=== PATIENT | male | born 1950 | race Caucasian/White ===

== ENCOUNTER 2020-12-16 21:31 | Emergency (ER) | payer MEDICAID, SELFPAY ==
--- NOTE | ~2020-12-16 | CT_ITS ---
EXAMINATION: CT brain wo con INDICATION: Altered mental status COMPARISON: None TECHNIQUE: Standard unenhanced head CT. The dose-length product (DLP) was 605.33 mGy-cm. The mA was a djusted according to patient size. Iterative reconstruction technique was employed. FINDINGS: Motion artifact slightly limits the examination. There is no acute intraparenchymal hemorrh age. No evidence of mass lesion. No evidence of acute infarction. There is mild periventricular and s ubcortical hypodensity probably related to small vessel ischemic disease. There is moderate prominenc e of the sulci and ventricles related to cerebral atrophy. Intracranial calcified cerebral atheroscle rosis is noted. There are no extra-axial collections. There is no mass effect or midline shift. The o rbits and soft tissues are unremarkable. The visualized sinuses and mastoid air cells are well aerat ed. IMPRESSION: 1. No acute intracranial abnormality, sensitivity limited by motion artifact. 2. Age related findings. Reviewed, dictated and finalized at location A. [facility]
[2020-12-16 21:38] VITALS: BP 115/78; PULSE 103; RESP 20; TEMP 37.3; O2SAT 99
--- NOTE | 2020-12-16 21:46 | ED.GENADULT ---
HPI - General Adult General Chief complaint: Unspecified Stated complaint: escaped from [facility] Time Seen by Provider: 12/16/20 21:46 History of Present Illness HPI narrative: 70 yo male brought in by PD for dementia. He is a [facility] who went missing for about 4 hours and was found wandering. He is apparently oriented x1 at baseline. He is not able to provide any history. History limited by dementia Related Data Allergies Allergy/AdvReac Type Severity Reaction Status Date / Time No Known Allergies Allergy Verified 12/16/20 21:34 Review of Systems Review of Systems: ROS unobtainable: Yes unobtainable due to mental status [facility] Past Medical History Medical History (Updated 12/17/20 @ 00:38 by Franco Johnston MD) Dementia Social History Social History Gender identity (if verbalized by the patient): Male Comments Additional history unobtainable Exam Const: General: no acute distress and alert Other: He is disheveled and covered in dirt. It appears that he may have fallen multiple times. HENMT: Head: normal to inspection Mouth: Yes dry mucous membranes Eyes: Pupils: Equal, round and reactive pupils present Chest: Chest palpation & inspection: no tenderness Resp: Effort & Inspection: normal respiratory effort Auscultation: clear to auscultation bilaterally, no rales, no rhonchi and no wheezes Cardio: Jugular venous distension: no JVD Rate: tachycardic Rhythm: regular rhythm Heart sounds: no murmurs GI: Inspection: non-distended GI Palp: Yes Soft to palpation and No Tenderness to palpation present (GI) Skin: General skin exam: normal color Neuro: General: oriented to person, gait normal and moves all extremities Extrem: General: no edema Psych: Appearance: disheveled Course Vital Signs Vital signs: Vital Signs Temperature 37.3 C 12/16/20 21:38 Pulse Rate 103 H 12/16/20 21:38 Respiratory Rate 20 12/16/20 21:38 Blood Pressure 115/78 12/16/20 21:38 Pulse Oximetry 99 12/16/20 21:38 Temperature 37.3 C 12/16/20 21:38 Pulse Rate 106 H 12/17/20 00:30 Respiratory Rate 16 12/17/20 00:30 Blood Pressure 134/74 12/17/20 00:30 Pulse Oximetry 96 12/17/20 00:30 Medical Decision Making MDM Narrative Medical decision making narrative: Labs and exam suggest dehydration Medical Records Medical records reviewed: Yes I reviewed the patient's medical records. Vital Signs Vital Signs: Vital Signs Temperature 37.3 C 12/16/20 21:38 Pulse Rate 103 H 12/16/20 21:38 Respiratory Rate 20 12/16/20 21:38 Blood Pressure 115/78 12/16/20 21:38 Pulse Oximetry 99 12/16/20 21:38 Temperature 37.3 C 12/16/20 21:38 Pulse Rate 106 H 12/17/20 00:30 Respiratory Rate 16 12/17/20 00:30 Blood Pressure 134/74 12/17/20 00:30 Pulse Oximetry 96 12/17/20 00:30 Lab Data Result diagrams: 12/16/20 23:12 12/16/20 23:12 Labs: Lab Results 12/16/20 12/16/20 12/16/20 Range/Units 23:12 23:12 23:12 WBC 10.4 H (4.5-10.0) K/mm3 RBC 4.96 (4.6-6.20) M/mm3 Hgb 14.1 (14.0-18.0) g/dL Hct 42.4 (42.0-52.0) % MCV 85.5 (80-100) fl MCH 28.4 (26-34) pg MCHC 33.3 (32-36) g/dl RDW 12.6 (11.5-14.5) % Plt Count 227 (150-375) k/mm3 MPV 9.4 (7.4-10.4) fl Immature Gran % (Auto) 1.0 H (0-0.5) % Neut % (Auto) 83.3 H (45.5-73.1) % Lymph % (Auto) 8.5 L (18.3-44.2) % [place] % (Auto) 6.8 (2.6-8.5) % Eos % (Auto) 0.1 (0-4.4) % Baso % (Auto) 0.3 (0.2-1.2) % Lymph # (Auto) 0.89 L (0.9-3.2) K/mm3 [place] # (Auto) 0.7 H (0.1-0.6) K/mm3 Eos # (Auto) 0.0 (0-0.3) K/mm3 Baso # (Auto) 0.0 (0.0-0.1) K/mm3 Abs Immat Gran (auto) 0.10 H (0.00-0.031) K/mm3 Absolute Neuts (auto) 8.7 H (1.3-6.7) K/mm3 Absolute Nucleated RBC 0.0 (0.0-0.012) K/mm3 Nucleated RBC % 0.0 (0.0-0.2) % PT 12.7 (11.1-14.7) Seconds INR 0.9 AP
--- NOTE | 2020-12-16 21:52 | PC.NURSE ---
patient eloped from [facility] about 4 hours ago. patient states he was trying to go home. brought to er by [place] police. patient has no complaints. no obvious injury
--- NOTE | 2020-12-16 22:11 | PC.NURSE ---
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 status.
--- NOTE | 2020-12-16 23:15 | PC.NURSE ---
Received report regarding patient---apparently he has been getting off stretcher and getting himself redressed several times--at this time patient is in blue paper scrubs on tretcher. Assumed care of patient at this time
[2020-12-16 23:18] LABS: Basophils Percent Auto 0.3 % (0.2-1.2); Eosinophils Percent Auto 0.1 % (0-4.4); Hematocrit 42.4 % (42.0-52.0); Hemoglobin 14.1 g/dL (14.0-18.0); Lymphocytes Absolute Auto 0.89 K/mm3 (0.9-3.2); Lymphocytes Percent Auto 8.5 % (18.3-44.2); Mean Corpuscular HGB Conc 33.3 g/dl (32-36); Mean Corpuscular Hemoglobin 28.4 pg (26-34); Mean Corpuscular Volume 85.5 fl (80-100); Mean Platelet Volume 9.4 fl (7.4-10.4); Monocytes Absolute Auto 0.7 K/mm3 (0.1-0.6); Monocytes Percent Auto 6.8 % (2.6-8.5); Neutrophils Absolute Auto 8.7 K/mm3 (1.3-6.7); Neutrophils Percent Auto 83.3 % (45.5-73.1); Platelet Count Result 227 k/mm3 (150-375); Red Blood Count 4.96 M/mm3 (4.6-6.20); Red Cell Distribution Width 12.6 % (11.5-14.5); White Blood Count 10.4 K/mm3 (4.5-10.0)
[2020-12-16 23:30] LABS: INR 0.9; Prothrombin Time 12.7 Seconds (11.1-14.7)
[2020-12-16 23:31] LABS: Partial Thromboplastin Time 25.2 SECONDS (22.3-36.8)
[2020-12-16 23:35] LABS: Alanine Aminotransferase 31 U/L (4-50); Alkaline Phosphatase 66 U/L (38-126); Anion Gap 7 mmol/L (8-16); Aspartate Amino Transferase 48 U/L (17-59); Bilirubin,Total 0.4 mg/dL (0.2-1.3); Blood Urea Nitrogen 16 mg/dL (9-20); Calcium 8.9 mg/dL (8.4-10.2); Carbon Dioxide 28 mmol/L (22-30); Chloride 104 mmol/L (98-107); Estimated Glomerular Filt Rate > 60; Glucose 99 mg/dL (75-110); Potassium 4.1 mmol/L (3.4-5.0); Sodium 139 mmol/L (137-145)
[2020-12-17 00:12] LABS: Add Urine Microscopic? YES; Appearance Urine Clear (Clear); Bilirubin Urine Negative (Negative); Blood Urine 1+ (Negative); Color Urine Yellow (Yellow); Glucose Urine UA Negative (Negative); Ketones Urine 2+ mg/dL (Negative); Leukocyte Esterase Ur Negative LEU/UL (Negative); Mucus Urine Rare /lpf; Nitrate Urine Negative (Negative); Protein Urine Negative (Negative); Specific Grav Ur 1.023 (1.001-1.035); Urobilinogen Urine Negative mg/dL (<2.0); WBC Urine 0-3 /hpf
--- NOTE | 2020-12-17 00:29 | PC.NURSE ---
Patient found sitting in chair at bedside -has taken off the blue scrubs and is redressing himself. Patient is calm and cooperative
[2020-12-17 00:30] VITALS: BP 134/74; PULSE 106; RESP 16; O2SAT 96
[2020-12-17] MEDS: SODIUM CHLORIDE 0.9% IV 1,000 ML 999 ML IV CONT (01:01)
[2020-12-17 01:30] VITALS: BP 124/76; PULSE 90; RESP 16; O2SAT 99
--- NOTE | 2020-12-17 01:46 | PC.NURSE ---
0120-patient pulled out IV and was trying to walk out of room. Linens changed after bleeding controlled-Dr Johnston aware- dont put IV back in . Patient back on stretcher
== END 2020-12-17 02:30 ==
PROVIDERS: Emergency Provider Emergency Medicine
DX: F03.90 Unspecified dementia, unspecified severity, without behavioral disturbance, psychotic disturbance, mood disturbance, and anxiety (principal)
CPT/HCPCS: 36415; 70450; 80053; 81001; 85025; 85610; 85730; 96360; 99284; J7030

== ENCOUNTER 2022-10-17 21:09 | Emergency (ER) | payer MEDICAID, SELFPAY ==
[2022-10-17] VITALS (7 sets, daily range): BP systolic 114–143; BP diastolic 64–90; PULSE 82–108; RESP 18–34; TEMP 37.7–37.9; O2SAT 91–96
--- NOTE | ~2022-10-17 | XR_ITS ---
EXAMINATION: XR chest 1V portable DATE: 10/17/2022 21:31 INDICATION: Shortness of breath, cough and wheezing TECHNIQUE: frontal view of the chest was obtained. COMPARISON: None FINDINGS: Mild elevation of the left hemidiaphragm. Mild perihilar bronchial wall thickening. No focal airspace opacities, pleural effusion or pneumothorax. The cardiomediastinal silhouette is normal. IMPRESSION: 1. Bilateral mild perihilar bronchial wall thickening without without focal airspace opacities. Diffe rential would include bronchitis, reactive airway disease/asthma or less likely mild pulmonary edema. Reviewed, dictated and finalized at location A. [employer] IMPRESSION: 1. Bilateral mild perihilar bronchial wall thickening without without focal air space opacities. Differential would include bronchitis, reactive airway disease /asthma or less likely mild pulmonary edema.
--- NOTE | 2022-10-17 21:18 | ECG_ITS ---
Measurements Intervals [place] Rate: 100 P: 44 CA: 158 QRS: 33 QRSD: 85 T: 45 QT: 320 QTc: 413 Interpretive Statements SINUS TACHYCARDIA NONSPECIFIC T-WAVE ABNORMALITY- ANTEROLATERAL LEADS BASELINE ARTIFACT- I, AVR, AVL, AVF, V1-V6 BORDERLINE ECG NO PREVIOUS ECG AVAILABLE FOR COMPARISON Electronically Signed On 10-18-2022 7:01:40 [employer] by David Diaz D.O.
[2022-10-17] MEDS: ALBUTEROL SULFATE NEB 2.5 MG/3 ML INH 5 MG INHALATION (21:34)
[2022-10-17] MEDS: IPRATROPIUM BR 0.02% INH SOLN 0.5 MG/2.5 ML VIAL INHALATION (21:34)
[2022-10-17 21:35] LABS: Basophils Percent Auto 0.3 % (0.2-1.2); Eosinophils Percent Auto 0.2 % (0-4.4); Hematocrit 43.6 % (42.0-52.0); Hemoglobin 14.4 g/dL (14.0-18.0); Immature Granulocyte Absolute 0.06 K/mm3 (0.00-0.031); Immature Platelet Fraction Pct 2.7 % (0.9-11.2); Lymphocytes Absolute Auto 1.43 K/mm3 (0.9-3.2); Lymphocytes Percent Auto 24.5 % (18.3-44.2); Mean Corpuscular Hemoglobin 29.8 pg (26-34); Mean Corpuscular Volume 90.1 fl (80-100); Mean Platelet Volume 9.7 fl (7.4-10.4); Monocytes Absolute Auto 0.7 K/mm3 (0.1-0.6); Monocytes Percent Auto 12.3 % (2.6-8.5); Neutrophils Absolute Auto 3.6 K/mm3 (1.3-6.7); Neutrophils Percent Auto 61.7 % (45.5-73.1); Platelet Count Result 131 k/mm3 (150-375); Red Blood Count 4.84 M/mm3 (4.6-6.20); Red Cell Distribution Width 13.4 % (11.5-14.5); White Blood Count 5.8 K/mm3 (4.5-10.0)
--- NOTE | 2022-10-17 21:40 | ED.GENADULT ---
HPI - General Adult General Chief complaint: Shortness of Breath/Dyspnea Stated complaint: shortness of breath Time Seen by Provider: 10/17/22 21:12 History of Present Illness HPI narrative: Patient 72-year-old gentleman who presents the emergency department with a chief complaint of cough shortness of breath and wheezing. Per the nursing facility patient has had cough for the last couple of days has been wheezing and having obvious auditory wheezing in the room. I also noticed that he has had a low-grade fever and has been weaker than normal. The patient reports that symptoms are not improved by anything. Related Data Home Medications Medication Instructions Recorded Confirmed aripiprazole 20 mg tablet mg 10/18/22 aripiprazole 300 mg intramuscular mg IM 10/18/22 suspension,extended release (Abilify Maintena) divalproex 500 mg tablet,delayed mg PO 10/18/22 release donepezil 5 mg tablet mg 10/18/22 mirtazapine 30 mg tablet mg 10/18/22 olanzapine 20 mg tablet mg 10/18/22 omega-3 fatty acids-vitamin E cap 10/18/22 10/18/22 1,000 mg capsule rosuvastatin 5 mg tablet mg 10/18/22 trazodone 50 mg tablet mg 10/18/22 Allergies Allergy/AdvReac Type Severity Reaction Status Date / Time No Known Allergies Allergy Verified 10/18/22 00:08 Review of Systems Review of Systems: A 10 system review of systems was completed on the patient and is negative except for what is stated in the HPI. Nursing and ancillary documentation was reviewed. PMFSH Past Medical History Medical History Dementia Social History Social History Gender identity (if verbalized by the patient): Male Exam Narrative: GENERAL: Well-appearing, well-nourished, and in no acute distress. HEAD: Normocephalic, atraumatic. EYES: PERRLA and EOMI. ENT: Nares clear, no rhinorrhea or epistaxis. Mucous membranes moist. NECK: Supple. CHEST: Diffuse wheezing bilaterally. No respiratory distress. HEART: Regular rate and rhythm. No murmur heard. Normal peripheral pulses. ABDOMEN: Soft, nontender, nondistended, normal active bowel sounds. EXTREMITIES: Normal range of motion. No edema. SKIN: Warm, dry, no rash. NEURO: No focal deficits. Alert and oriented x3. PSYCH: Normal mood and affect. Course Course Emergency Course: Patient is feeling much better after receiving Tylenol and a breathing treatment and steroids. Chest x-ray showed some slight interstitial infiltrates. Given the fever the patient will be treated empirically for bacterial pneumonia. Patient's laboratory studies were otherwise within normal limits. Patient was able to ambulate without difficulty Vital Signs Vital signs: Vital Signs Temperature 37.9 C H 10/17/22 21:08 Pulse Rate 102 H 10/17/22 21:08 Respiratory Rate 34 H 10/17/22 21:08 Blood Pressure 134/90 10/17/22 21:08 Pulse Oximetry 96 10/17/22 21:08 Oxygen Delivery Room Air 10/17/22 21:08 Temperature 37.7 C H 10/17/22 22:25 Pulse Rate 83 10/18/22 00:02 Respiratory Rate 23 H 10/18/22 00:02 Blood Pressure 111/61 10/18/22 00:02 Pulse Oximetry 93 10/18/22 00:02 Oxygen Delivery Room Air 10/17/22 21:18 Medical Decision Making Vital Signs Vital Signs: Vital Signs Temperature 37.9 C H 10/17/22 21:08 Pulse Rate 102 H 10/17/22 21:08 Respiratory Rate 34 H 10/17/22 21:08 Blood Pressure 134/90 10/17/22 21:08 Pulse Oximetry 96 10/17/22 21:08 Oxygen Delivery Room Air 10/17/22 21:08 Temperature 37.7 C H 10/17/22 22:25 Pulse Rate 83 10/18/22 00:02 Respiratory Rate 23 H 10/18/22 00:02 Blood Pressure 111/61 10/18/22 00:02 Pulse Oximetry 93 10/18/22 00:02 Oxygen Delivery Room Air 10/17/22 21:18 Lab Data Result diagrams: 10/17/22 21:23 10/17/22 21:23 Labs: Lab Results 10/17/22
[2022-10-17 21:42] LABS: Lactic Acid Reflex 2.1 mmol/L (0.7-2.0)
[2022-10-17 21:46] LABS: INR 1.1; Prothrombin Time 13.3 Seconds (11.1-14.7)
[2022-10-17] MEDS: DEXAMETHASONE SOD PHOS INJ 4 MG/ML VIAL 6 MG IV PUSH (21:46)
[2022-10-17] MEDS: SODIUM CHLORIDE 0.9% IV 1,000 ML 500 ML IV CONT (21:46)
[2022-10-17 21:47] LABS: Partial Thromboplastin Time 30.3 SECONDS (22.3-36.8)
[2022-10-17 21:51] LABS: Alanine Aminotransferase 29 U/L (6-50); Alkaline Phosphatase 49 U/L (38-126); Anion Gap 8 mmol/L (8-16); Aspartate Amino Transferase 73 U/L (17-59); Bilirubin,Total 0.4 mg/dL (0.2-1.3); Blood Urea Nitrogen 20 mg/dL (9-20); Calcium 8.9 mg/dL (8.4-10.2); Carbon Dioxide 28 mmol/L (22-30); Chloride 102 mmol/L (98-107); Estimated CRCL calculation 57 ml/min; Estimated Glomerular Filt Rate > 60; Glucose 117 mg/dL (65-110); Magnesium 1.9 mg/dL (1.6-2.3); Potassium 4.3 mmol/L (3.4-5.0); Sodium 138 mmol/L (137-145)
--- NOTE | 2022-10-17 21:51 | PC.NURSE ---
Janet, patients daughter calls to leave her number of [phone].
[2022-10-17 22:01] LABS: NT Pro B Type Natriuretic Pept 89 pg/mL (5-100); Troponin I 0.013 ng/mL (0.000-0.034)
[2022-10-17 22:07] LABS: Procalcitonin 0.2 ng/mL
[2022-10-17 22:10] LABS: Influenza A QL RT-PCR Negative (Negative); Influenza B QL RT-PCR Negative (Negative); SARS-CoV-2 RNA PCR Negative
--- NOTE | 2022-10-17 22:58 | PC.NURSE ---
pt unable to provide urine sample at this time. Pt denies straight cath.
--- NOTE | 2022-10-17 23:39 | PC.NURSE ---
pt ambulated with this RN using a walker. Pt was able to walk without my direct assistance. pt states they normally use a walker to ambulate.
[2022-10-17 23:54] LABS: Appearance Urine Clear (Clear); Bilirubin Urine 1+ (Negative); Blood Urine 2+ (Negative); Color Urine Yellow (Yellow); Glucose Urine UA Negative (Negative); Ketones Urine 1+ mg/dL (Negative); Leukocyte Esterase Ur Negative LEU/UL (Negative); Nitrate Urine Negative (Negative); Protein Urine Trace mg/dL (Negative); Urobilinogen Urine 0.2 mg/dL (<2.0); pH Urine 5.5 (5.0-9.0)
[2022-10-17 23:57] LABS: Add Urine Microscopic? YES; Mucus Urine Rare /lpf; RBC Urine 21-50 /hpf (0-2); Squamous Epithelial Cell Urine Rare /hpf (Few); WBC Urine 0-3 /hpf
[2022-10-18 00:02] VITALS: BP 111/61; PULSE 83; RESP 23; O2SAT 93
--- NOTE | 2022-10-18 00:21 | PC.NURSE ---
[facility] faxed over pt's medications. medications entered into chart by this RN
[2022-10-18] MEDS: DOXYCYCLINE HYCLATE 100 MG TABLET PO (00:26)
[2022-10-18 00:30] LABS: Reflex Lactic Acid Yes or No Add Lactic
--- NOTE | 2022-10-18 00:34 | PC.NURSE ---
called [facility] for transport. ETA [phone]
[2022-10-18 00:40] LABS: Troponin I < 0.012 ng/mL (0.000-0.034)
[2022-10-18 00:53] LABS: Lactic Acid 1.1 mmol/L (0.7-2.0)
[2022-10-18 01:00] VITALS: BP 113/65; PULSE 70; RESP 20
[2022-10-18 01:31] VITALS: BP 140/71; PULSE 81; RESP 23; O2SAT 94
--- NOTE | 2022-10-18 02:00 | PC.NURSE ---
[facility] called and updated ETA to [phone]. Called [facility] to request transport. [facility]available. [facility] unavailable tonight.
[2022-10-18 02:01] VITALS: BP 110/61; PULSE 73; RESP 25; O2SAT 94
[2022-10-18 02:30] VITALS: BP 114/64; PULSE 65; RESP 26; O2SAT 95
--- NOTE | 2022-10-18 03:41 | PC.NURSE ---
[facility] here
== END 2022-10-18 00:29 | disposition home or self-care (01) ==
PROVIDERS: Emergency Provider Emergency Medicine; PCP Family Medicine
DX: J18.9 Pneumonia, unspecified organism (principal); Z20.822 Contact with and (suspected) exposure to COVID-19; F03.90 Unspecified dementia, unspecified severity, without behavioral disturbance, psychotic disturbance, mood disturbance, and anxiety
CPT/HCPCS: 36415; 51701; 71045; 80053; 81001; 83605; 83735; 83880; 84145; 84484; 85025; 85055; 85610; 85730; 87040; 87502; 93005; 94640; 96361; 96365; 96375; 99284; A9270; J0131; J1100; J7030; U0003; U0005

== ENCOUNTER 2023-09-23 13:28 | Inpatient (IN) | payer MEDICARE, MEDICAID, SELFPAY ==
[2023-09-23] VITALS (9 sets, daily range): BP systolic 101–139; BP diastolic 53–74; PULSE 77–93; RESP 15–24; TEMP 36.4–37.1; O2SAT 93–97
--- NOTE | ~2023-09-23 | XR_ITS ---
EXAMINATION: XR tibia fibula RT 2V INDICATION: Right lower limb infection TECHNIQUE: Two views of the right lower lobe are obtained. COMPARISON: None available FINDINGS: Bone alignment is normal. There is no fracture. There is mild soft tissue swelling of the l ower limb. IMPRESSION: 1. Soft tissue swelling without acute osseous abnormality. Reviewed, dictated and finalized at location F.
--- NOTE | ~2023-09-23 | CT_ITS ---
EXAMINATION: C T brain wo con DATE: 10/01/2023 13:33 INDICATION: Blurred vision. TECHNIQUE: Computed tomography (CT) of the head was performed without intravenous contrast. The mA wa s adjusted according to patient size. Iterative reconstruction technique was employed. The dose-lengt h product was 529.67 mGy-cm. COMPARISON: Head CT 12/16/2020 FINDINGS: There are scattered areas of low attenuation in the cerebral white matter. There is chronic encephalomalacia in right frontal lobe. There is no intracranial hemorrhage, acute infarction, or ab normal intracranial mass lesion. There is dilatation of the ventricles out of proportion to the size of the sulci. There is mucosal thickening in the paranasal sinuses. The mastoid air cells are normal. There is an old cinthia hole in right frontal lobe. IMPRESSION: 1. Chronic encephalomalacia in right frontal lobe subjacent to a cinthia hole. 2. Worsened extensive extensive nonspecific cerebral white matter disease, which likely represents ch ronic small vessel ischemic disease. 3. Dilatation of the ventricles out of proportion to the size of the sulci. Correlate clinically for normal pressure hydrocephalus. Reviewed, dictated and finalized at location E. IMPRESSION: 1. Chronic encephalomalacia in right frontal lobe subjacent to a cinthia hole. 2. Worsened extensive extensive nonspecific cerebral white matter disease, whic h likely represents chronic small vessel ischemic disease. 3. Dilatation of the ventricles out of proportion to the size of the sulci. Cor relate clinically for normal pressure hydrocephalus.
--- NOTE | ~2023-09-23 | US_ITS ---
EXAMINATION: US venous doppler LE RT DATE: 09/23/2023 18:05 INDICATION: Right lower limb pain and swelling TECHNIQUE: Bobo scale images without and with compression and Doppler images of the right lower extre mity veins were obtained. COMPARISON: None FINDINGS: The right common femoral vein, profunda femoral vein, femoral vein, popliteal vein, peronea l trunk, posterior tibial veins, and greater saphenous vein are patent. IMPRESSION: 1. Patent right lower extremity veins. No evidence of deep venous thrombosis. Reviewed, dictated and finalized at location F.
[2023-09-23 14:40] LABS: Basophils Percent Auto 0.2 % (0.2-1.2); Hematocrit 41.2 % (42.0-52.0); Hemoglobin 13.5 g/dL (14.0-18.0); Immature Granulocyte Absolute 0.11 K/mm3 (0.00-0.031); Immature Granulocyte Percent A 1.2 % (0-0.5); Lymphocytes Absolute Auto 0.55 K/mm3 (0.9-3.2); Lymphocytes Percent Auto 5.8 % (18.3-44.2); Mean Corpuscular HGB Conc 32.8 g/dl (32-36); Mean Corpuscular Hemoglobin 29.1 pg (26-34); Mean Corpuscular Volume 88.8 fl (80-100); Mean Platelet Volume 10.2 fl (7.4-10.4); Monocytes Absolute Auto 0.7 K/mm3 (0.1-0.6); Monocytes Percent Auto 7.5 % (2.6-8.5); Neutrophils Absolute Auto 8.1 K/mm3 (1.3-6.7); Neutrophils Percent Auto 85.3 % (45.5-73.1); Platelet Count Result 197 k/mm3 (150-375); Red Blood Count 4.64 M/mm3 (4.6-6.20); Red Cell Distribution Width 14.6 % (11.5-14.5); White Blood Count 9.5 K/mm3 (4.5-10.0)
[2023-09-23 16:09] LABS: Anion Gap 6 mmol/L (8-16); Blood Urea Nitrogen 20 mg/dL (9-20); Calcium 8.9 mg/dL (8.4-10.2); Carbon Dioxide 33 mmol/L (22-30); Chloride 99 mmol/L (98-107); Estimated CRCL calculation 54 ml/min; Estimated Glomerular Filt Rate > 60; Glucose 182 mg/dL (65-110); Potassium 4.1 mmol/L (3.4-5.0); Sodium 138 mmol/L (137-145)
--- NOTE | 2023-09-23 17:00 | ED.LOWEXIN ---
HPI - Extremity Injury (Lower) General Chief Complaint: Extremity Injury, Lower Stated Complaint: declining condition Time Seen by Provider: 09/23/23 13:36 History of Present Illness HPI Narrative: Patient sent from [facility] due to being more altered and not being able to walk, he is generally able to walk prior to this. He has had history of cellulitis to his right leg before and his halfway noticed today that it was swollen and red Related Data Home Medications Medication Instructions Recorded Confirmed aripiprazole 20 mg tablet 20 mg PO DAILY 10/18/22 09/23/23 aripiprazole 300 mg intramuscular 300 mg IM MONTHLY 10/18/22 09/23/23 suspension,extended release (Abilify Maintena) divalproex 500 mg tablet,delayed 500 mg PO BID 10/18/22 09/23/23 release donepezil 5 mg tablet 5 mg PO HS 10/18/22 09/23/23 mirtazapine 30 mg tablet 30 mg PO HS 10/18/22 09/23/23 olanzapine 20 mg tablet 20 mg PO DAILY 10/18/22 09/23/23 omega-3 fatty acids-vitamin E 2 cap PO HS 10/18/22 09/23/23 1,000 mg capsule rosuvastatin 5 mg tablet 5 mg PO HS 10/18/22 09/23/23 trazodone 50 mg tablet 50 mg PO DAILY 10/18/22 09/23/23 acetaminophen 325 mg tablet 325 mg PO Q6H PRN pain 09/23/23 09/23/23 (Tylenol) atorvastatin 10 mg tablet 10 mg PO DAILY 09/23/23 09/23/23 Allergies Allergy/AdvReac Type Severity Reaction Status Date / Time No Known Allergies Allergy Verified 09/23/23 13:48 Review of Systems Review of Systems: ROS unobtainable: Yes unobtainable due to mental status PMFSH Past Medical History Medical History (Updated 09/23/23 @ 19:59 by Anita Benson MD) Dementia Schizophrenia TBI (traumatic brain injury) Social History Social History Alcohol intake: never Substance use: never Gender identity (if verbalized by the patient): Male Spiritual care concerns: No Exam Narrative: EXAMINATION OF ORGAN SYSTEMS/BODY AREAS: Constitutional: Vital signs per nursing GENERAL:[No acute distress, non-toxic appearing.] HEAD: Normal with no signs of head trauma. EYES: EOMI, conjunctiva normal ENT: Hearing grossly intact LUNGS: Nonlabored breathing. HEART: [Regular rate and rhythm] ABD: [Soft], [nontender to palpation] EXT: Normal range of motion, edematous/pitting redness to RLE with warm foot/palpable DP pulse, tiny blister, no crepitus SKIN: Described above NEURO: [Generally sleeping but will wake up to stimuli. No gross focal sensory or strength deficits.] Course Vital Signs Vital signs: Vital Signs Temperature 98.8 F 09/23/23 13:26 Pulse Rate 93 09/23/23 13:26 Respiratory Rate 15 09/23/23 13:26 Blood Pressure 128/74 09/23/23 13:26 Pulse Oximetry 96 09/23/23 13:26 Oxygen Delivery Room Air 09/23/23 13:26 Temperature 97.6 F 09/23/23 18:48 Pulse Rate 87 09/23/23 18:48 Respiratory Rate 16 09/23/23 18:48 Blood Pressure 139/65 09/23/23 18:48 Pulse Oximetry 96 09/23/23 18:48 Oxygen Delivery Room Air 09/23/23 13:26 MDM - Extremity Injury (Lower) MDM Narrative Medical decision making narrative: Patient presenting with cellulitis and into mental status, on exam he does have pitting edema and redness to the right lower extremity consistent with cellulitis, as well as a tiny blister, no obvious signs of necrotizing infection or anything worse, no systemic symptoms, labs within acceptable limits, however given his mental status and the tiny blister I do feel IV antibiotics would be indicated at this time with de-escalation if he improves. X-ray without any obvious soft tissue gas. Discussed with hospitalist for admission Lab Data 09/23/23 14:24 09/23/23 15:39 Labs: Lab Results 09/23/23 09/23/23 Range/Units 14:24 15:39 WBC 9.5 (4.5-10.0) K/mm3 RBC 4.64 (4.6-6.20) M/mm3 Hgb 13.5 L (14.0-18.0) g/dL Hct 41.2 L (42.0-52.0) % MCV 88.8 (80-100) fl M
--- NOTE | 2023-09-23 17:10 | PM.IMHP ---
H&P: HPI History of Present Illness Date/Time: 09/23/23 17:10 Chief Complaint: Reduced mobility, AMS, redness to RLE Narrative: 73-year-old male presents here with reduced mobility, increased altered mental status, erythema to RLE with past medical history of TBI, schizophrenia, cellulitis to the right lower extremity. Patient presents from [facility] due to reduction in mobility and declining condition . Patient has redness and swelling to right lower extremity that is well demarcated. He has history of cellulitis to his right lower extremity, unclear when 1st diagnosed. He is alert and orientated to self only at baseline. History of vascular dementia with behavioral disturbances and schizoaffective. Patient is normally ambulatory, however today they were unable to get him up and walking. No fever reported by facility. Afebrile at arrival. Patient appears comfortable, currently at baseline (orientated to self), and mildly somnolent. HPI obtained through chart review and ED provider report due to patient confusion. Review of Systems Review of Systems: All systems reviewed & are unremarkable except as noted in HPI and below PMFSH Past Medical History Medical History Cellulitis Cerebral aneurysm, nonruptured Dementia with behavioral disturbance Diplopia HLD (hyperlipidemia) Major depressive disorder Schizophrenia Vitamin D deficiency Social History Social History (Updated 09/24/23 @ 01:47 by Jayashree Kc APRN) Social History: Currently a resident at [facility]. Code status: Full code, paperwork in chart as of 09/24/2023. Alcohol intake: never Substance use: never Gender identity (if verbalized by the patient): Male Spiritual care concerns: No Meds Home Medications and Allergies Home Medications Medication Instructions Recorded Confirmed Type aripiprazole 20 mg tablet 20 mg PO DAILY 10/18/22 09/23/23 History aripiprazole 300 mg intramuscular 300 mg IM MONTHLY 10/18/22 09/23/23 History suspension,extended release (Abilify Maintena) divalproex 500 mg tablet,delayed 500 mg PO BID 10/18/22 09/23/23 History release donepezil 5 mg tablet 5 mg PO HS 10/18/22 09/23/23 History ipratropium 0.5 mg-albuterol 3 mg 3 ml inhalation Q6H PRN shortness 10/18/22 09/23/23 Rx (2.5 mg base)/3 mL nebulization of breath #180 mL soln mirtazapine 30 mg tablet 30 mg PO HS 10/18/22 09/23/23 History olanzapine 20 mg tablet 20 mg PO DAILY 10/18/22 09/23/23 History omega-3 fatty acids-vitamin E 2 cap PO HS 10/18/22 09/23/23 History 1,000 mg capsule rosuvastatin 5 mg tablet 5 mg PO HS 10/18/22 09/23/23 History trazodone 50 mg tablet 50 mg PO DAILY 10/18/22 09/23/23 History acetaminophen 325 mg tablet 325 mg PO Q6H PRN pain 09/23/23 09/23/23 History (Tylenol) atorvastatin 10 mg tablet 10 mg PO DAILY 09/23/23 09/23/23 History Allergies Allergy/AdvReac Type Severity Reaction Status Date / Time No Known Allergies Allergy Verified 09/23/23 13:48 Vital Signs Vital Signs - 24 hr 09/23/23 13:26 09/23/23 14:14 09/23/23 15:36 Temperature 98.8 F Pulse Rate 93 86 85 Respiratory Rate 15 20 18 Blood Pressure 128/74 106/66 Pulse Oximetry 96 94 96 Oxygen Delivery Room Air 09/23/23 17:01 Temperature Pulse Rate 86 Respiratory Rate 21 H Blood Pressure 101/53 L Pulse Oximetry 93 Oxygen Delivery Exam Narrative: Resting in Emergency Room stretcher Const: General: comfortable and no acute distress Other: Mildly somnolent HENMT: Mouth: Yes dry mucous membranes Eyes: General: appearance normal, both eyes and all related structures Sclera: sclerae normal Pupils: Equal, round and reactive pupils present EOM: EOMs intact bilaterally Resp: Effort & Inspection: normal respiratory effort Auscultation: clear to auscultation bilaterally Cardio: Rate: regular rate Rhythm: regular rhythm Other
--- NOTE | 2023-09-23 18:17 | PC.NURSE ---
Called [facility] and gave update on pt status, ADMIT. Spoke to Cally RN and gave nurse to nurse report.
[2023-09-23 18:18] LABS: Lactic Acid Reflex 2.8 mmol/L (0.7-2.0)
--- NOTE | 2023-09-23 18:55 | ADMGEN ---
This patient, Giorgi Medeiros, was admitted to [facility] Surg Room 325-01. Patient/family oriented to hospital policies and general routines including ID bracelet, bed and alarms, visiting hours, pain management, procedures, bathroom and other care routines, personal items, smoking policy, room service/diet, and visiting hours. Information on how to activate the Rapid Response Team has been discussed. Patient/Family are encouraged to report perceived risks to care and to ask questions if they do not understand what they are told or what they should do. Report from Conchis in ER.
[2023-09-23 20:59] LABS: Reflex Lactic Acid Yes or No Add Lactic
[2023-09-23 22:01] LABS: Lactic Acid 1.3 mmol/L (0.7-2.0)
[2023-09-24] MEDS: LACTATED RINGERS 1,000 ML 999 ML IV CONT (03:43)
[2023-09-24 06:28] VITALS: BP 108/53; PULSE 74; RESP 18; TEMP 36.6; O2SAT 91
[2023-09-24 06:48] LABS: Hemoglobin 12.5 g/dL (14.0-18.0); Mean Corpuscular HGB Conc 32.1 g/dl (32-36); Mean Corpuscular Hemoglobin 28.8 pg (26-34); Mean Corpuscular Volume 89.9 fl (80-100); Mean Platelet Volume 9.5 fl (7.4-10.4); Platelet Count Result 173 k/mm3 (150-375); Red Blood Count 4.34 M/mm3 (4.6-6.20); Red Cell Distribution Width 14.6 % (11.5-14.5); White Blood Count 6.7 K/mm3 (4.5-10.0)
[2023-09-24 06:59] LABS: Anion Gap 5 mmol/L (8-16); Blood Urea Nitrogen 18 mg/dL (9-20); Calcium 8.8 mg/dL (8.4-10.2); Carbon Dioxide 31 mmol/L (22-30); Chloride 101 mmol/L (98-107); Estimated CRCL calculation 54 ml/min; Estimated Glomerular Filt Rate > 60; Glucose 108 mg/dL (65-110); Potassium 3.6 mmol/L (3.4-5.0); Sodium 137 mmol/L (137-145)
[2023-09-24 07:06] LABS: Lactic Acid Reflex 0.7 mmol/L (0.7-2.0)
[2023-09-24] MEDS: ENOXAPARIN 40 MG/0.4 ML SYRINGE SUB-Q (08:08)
[2023-09-24] MEDS: DIVALPROEX SODIUM DR 250 MG TABEC 500 MG PO ×2 (08:09→21:22)
[2023-09-24] MEDS: ACETAMINOPHEN 325 MG TABLET 650 MG PO (08:09)
[2023-09-24] MEDS: ARIPiprazole 10 MG TABLET 20 MG PO (08:09)
[2023-09-24] MEDS: ATORVASTATIN 10 MG TABLET PO (08:10)
[2023-09-24] MEDS: OLANZapine 5 MG TABLET 20 MG PO (08:10)
--- NOTE | 2023-09-24 10:30 | PM.IMPN ---
Progress Note: A&P Assessment and Plan (1) Reduced mobility: Code(s): Z74.09 - Other reduced mobility Status: Acute (2) Cellulitis of leg without foot, right: Code(s): L03.115 - Cellulitis of right lower limb Status: Acute Plan 73M w/ PMH depression, schizophrenia, dementia, HLD, vit d deficiency presents with limited mobility and cellulitis of RLE. cont vancomycin. monitor for improvement. asked nurse to market erythema borders. f/u blood cultures and trend white count. FEN: regular diet GI prophylaxis: not indicated DVT prophylaxis: lovenox Lines: pIV Code Status: Full code Dispo: stable. More than 25 minutes spent on chart review, patient interaction and assessment and plan. Subjective Date/time seen: 09/24/23 10:30 Interval history: NAOE. pt does not produce complaints. he is pleasant and cooperatives with commands Review of Systems Review of Systems: All systems reviewed & are unremarkable except as noted in HPI and below Exam Const: General: comfortable and no acute distress Eyes: Pupils: Equal, round and reactive pupils present Neck: Neck: supple Resp: Effort & Inspection: normal respiratory effort Auscultation: no crackles Cardio: Rate: regular rate Rhythm: regular rhythm GI: GI Palp: Yes Soft to palpation Auscultation: normal bowel sounds Skin: General skin exam: erythema (RLE, from ankle up to knee. no TTP, no lesions or drainage) Objective Data Vital Signs Vital Signs: Vital Signs - 24 hr 09/23/23 13:26 09/23/23 14:14 09/23/23 15:36 Temperature 98.8 F Pulse Rate 93 86 85 Respiratory Rate 15 20 18 Blood Pressure 128/74 106/66 Pulse Oximetry 96 94 96 Oxygen Delivery Room Air 09/23/23 17:01 09/23/23 18:07 09/23/23 18:39 Temperature 97.6 F Pulse Rate 86 77 87 Respiratory Rate 21 H 17 16 Blood Pressure 101/53 L 115/58 L 139/65 Pulse Oximetry 93 97 96 Oxygen Delivery 09/23/23 22:00 09/23/23 23:30 09/24/23 06:28 Temperature 98.3 F 97.9 F Pulse Rate 77 74 Respiratory Rate 24 H 18 Blood Pressure 122/61 108/53 L Pulse Oximetry 95 95 91 Oxygen Delivery Room Air 09/24/23 08:10 09/23/23 18:48 Temperature 97.6 F Pulse Rate 87 Respiratory Rate 16 Blood Pressure 139/65 Pulse Oximetry 96 Oxygen Delivery Room Air Intake/Output Intake/Output: Intake & Output 09/21/23 09/22/23 09/23/23 09/24/23 23:59 23:59 23:59 23:59 Intake Total 500 410 Balance 500 410 Meds/Results Medications: Active Medications Generic Name Dose Route Start Last Admin Trade Name Freq PRN Reason Stop Dose Admin Acetaminophen 650 mg 09/24/23 01:27 09/24/23 08:09 Acetaminophen 325 Mg Tablet PO 650 mg Q6H PRN Administration pain 1-3 Hydrocodone Bitart/Acetaminophen 1 tab 09/24/23 01:31 Hydrocodone/Acetaminophen (*Crx) 5-325 Mg Tablet PO Q4H PRN Moderate Pain (4-6) Albuterol 2.5 mg 09/24/23 01:27 Albuterol Sulfate Neb 2.5 Mg/3 Ml Inh INHALATION Q6HRT PRN shortness of breath Aripiprazole 20 mg 09/24/23 09:00 09/24/23 08:09 Aripiprazole 10 Mg Tablet PO 10/24/23 08:59 20 mg DAILY SLOAN Administration Atorvastatin Calcium 10 mg 09/24/23 09:00 09/24/23 08:10 Atorvastatin 10 Mg Tablet PO 10 mg DAILY SLOAN Administration Divalproex Sodium 500 mg 09/24/23 09:00 09/24/23 08:[address] 250 Mg Tabec PO 500 mg Q12HR SLOAN Administration Donepezil HCl 5 mg 09/24/23 21:00 Donepezil Hcl 5 Mg Tablet PO HS SLOAN Enoxaparin Sodium 40 mg 09/24/23 09:00 09/24/23 08:08 Enoxaparin 40 Mg/0.4 Ml Syringe SUB-Q 40 mg DAILY SLOAN Administration Fish Oil 2 gm 09/24/23 21:00 [place] 3 Polyunsat Fatty Acids 1 Gm Cap PO 10/24/23 20:59 HS SLOAN Vancomycin HCl 1,500 mg in 500 mls @ 250 mls/hr 09/24/23 14:00 Vancomycin 1,500 Mg/D5w 500 Ml IVPB Q24H SLOAN Ipratropium [place] 0.5 mg 09/24/23 02:59 Ipratropium Br 0.02% Inh Soln
--- NOTE | 2023-09-24 10:47 | PCPTNOTE ---
Waiting for return call from hospitalist regarding bedrest orders prior to initiating skilled therapy. Will follow.
[2023-09-24 14:00] VITALS: BP 102/57; PULSE 69; RESP 18; TEMP 37.2; O2SAT 92
[2023-09-24 20:00] VITALS: PULSE 85; RESP 18; O2SAT 94
[2023-09-24 20:20] VITALS: BP 103/57; PULSE 85; RESP 18; TEMP 37.9; O2SAT 94
[2023-09-24] MEDS: OMEGA 3 POLYUNSAT FATTY ACIDS 1 GM CAP 2 GM PO (21:22)
[2023-09-24] MEDS: ROSUVASTATIN 5 MG TABLET PO (21:23)
[2023-09-24] MEDS: traZODone HCL 50 MG TABLET PO (21:23)
[2023-09-24] MEDS: DONEPEZIL HCL 5 MG TABLET PO (21:23)
[2023-09-24] MEDS: MIRTAZAPINE 30 MG TABLET PO (21:23)
[2023-09-25 06:00] VITALS: BP 119/59; PULSE 66; RESP 20; TEMP 36.9; O2SAT 95
[2023-09-25 06:58] LABS: Basophils Absolute Auto 0.1 K/mm3 (0.0-0.1); Basophils Percent Auto 0.9 % (0.2-1.2); Eosinophils Absolute Auto 0.1 K/mm3 (0-0.3); Eosinophils Percent Auto 2.3 % (0-4.4); Hematocrit 38.9 % (42.0-52.0); Hemoglobin 12.6 g/dL (14.0-18.0); Immature Granulocyte Absolute 0.07 K/mm3 (0.00-0.031); Immature Granulocyte Percent A 1.2 % (0-0.5); Lymphocytes Absolute Auto 1.72 K/mm3 (0.9-3.2); Lymphocytes Percent Auto 30.6 % (18.3-44.2); Mean Corpuscular HGB Conc 32.4 g/dl (32-36); Mean Corpuscular Hemoglobin 29.2 pg (26-34); Mean Corpuscular Volume 90.3 fl (80-100); Mean Platelet Volume 9.9 fl (7.4-10.4); Monocytes Absolute Auto 0.6 K/mm3 (0.1-0.6); Monocytes Percent Auto 10.1 % (2.6-8.5); Neutrophils Absolute Auto 3.1 K/mm3 (1.3-6.7); Neutrophils Percent Auto 54.9 % (45.5-73.1); Platelet Count Result 175 k/mm3 (150-375); Red Blood Count 4.31 M/mm3 (4.6-6.20); Red Cell Distribution Width 14.3 % (11.5-14.5); White Blood Count 5.6 K/mm3 (4.5-10.0)
[2023-09-25 07:13] LABS: Anion Gap 4 mmol/L (8-16); Blood Urea Nitrogen 22 mg/dL (9-20); Calcium 8.6 mg/dL (8.4-10.2); Carbon Dioxide 31 mmol/L (22-30); Chloride 103 mmol/L (98-107); Estimated CRCL calculation 54 ml/min; Estimated Glomerular Filt Rate > 60; Glucose 106 mg/dL (65-110); Potassium 3.9 mmol/L (3.4-5.0); Sodium 138 mmol/L (137-145)
[2023-09-25] MEDS: ARIPiprazole 10 MG TABLET 20 MG PO (08:17)
[2023-09-25] MEDS: DIVALPROEX SODIUM DR 250 MG TABEC 500 MG PO ×2 (08:17→22:45)
[2023-09-25] MEDS: OLANZapine 5 MG TABLET 20 MG PO (08:17)
[2023-09-25] MEDS: ATORVASTATIN 10 MG TABLET PO (08:17)
[2023-09-25] MEDS: ENOXAPARIN 40 MG/0.4 ML SYRINGE SUB-Q (08:17)
--- NOTE | 2023-09-25 13:11 | PM.IMPN ---
Progress Note: A&P Assessment and Plan (1) Cellulitis of leg without foot, right: Code(s): L03.115 - Cellulitis of right lower limb Status: Acute (2) Reduced mobility: Code(s): Z74.09 - Other reduced mobility Status: Acute Plan 73M w/ PMH depression, schizophrenia, dementia, HLD, vit d deficiency presents with limited mobility and cellulitis of RLE. cont vancomycin. slightly improved. blood cultures NGTD PT, plan for return to snf for rehab FEN: regular diet GI prophylaxis: not indicated DVT prophylaxis: lovenox Lines: pIV Code Status: Full code Dispo: stable. Subjective Date/time seen: 09/25/23 13:11 Interval history: NAOE. pt sleeps peacefully in bed. upon wakening he has no complaints. Review of Systems Review of Systems: All systems reviewed & are unremarkable except as noted in HPI and below Exam Const: General: comfortable Resp: Effort & Inspection: normal respiratory effort Cardio: Rate: regular rate Rhythm: regular rhythm Extrem: General: edema (erythema as well, improved slightly) Objective Data Vital Signs Vital Signs: Vital Signs - 24 hr 09/24/23 14:00 09/24/23 13:18 09/24/23 20:20 Temperature 99 F 100.3 F H Pulse Rate 69 85 Respiratory Rate 18 18 Blood Pressure 102/57 L 103/57 L Pulse Oximetry 92 94 Oxygen Delivery Room Air 09/24/23 20:00 09/25/23 06:00 09/25/23 08:15 Temperature 98.5 F Pulse Rate 85 66 Respiratory Rate 18 20 Blood Pressure 119/59 L Pulse Oximetry 94 95 Oxygen Delivery Room Air Room Air Intake/Output Intake/Output: Intake & Output 09/22/23 09/23/23 09/24/23 09/25/23 23:59 23:59 23:59 23:59 Intake Total 500 2450 1650 Output Total 750 Balance 500 2450 900 Meds/Results Medications: Active Medications Generic Name Dose Route Start Last Admin Trade Name Freq PRN Reason Stop Dose Admin Acetaminophen 650 mg 09/24/23 01:27 09/24/23 08:09 Acetaminophen 325 Mg Tablet PO 650 mg Q6H PRN Administration pain 1-3 Hydrocodone Bitart/Acetaminophen 1 tab 09/24/23 01:31 Hydrocodone/Acetaminophen (*Crx) 5-325 Mg Tablet PO Q4H PRN Moderate Pain (4-6) Albuterol 2.5 mg 09/24/23 01:27 Albuterol Sulfate Neb 2.5 Mg/3 Ml Inh INHALATION Q6HRT PRN shortness of breath Aripiprazole 20 mg 09/24/23 09:00 09/25/23 08:17 Aripiprazole 10 Mg Tablet PO 10/24/23 08:59 20 mg DAILY SLOAN Administration Atorvastatin Calcium 10 mg 09/24/23 09:00 09/25/23 08:17 Atorvastatin 10 Mg Tablet PO 10 mg DAILY SLOAN Administration Divalproex Sodium 500 mg 09/24/23 09:00 09/25/23 08:[address] 250 Mg Tabec PO 500 mg Q12HR SLOAN Administration Donepezil HCl 5 mg 09/24/23 21:00 09/24/23 21:23 Donepezil Hcl 5 Mg Tablet PO 5 mg HS SLOAN Administration Enoxaparin Sodium 40 mg 09/24/23 09:00 09/25/23 08:17 Enoxaparin 40 Mg/0.4 Ml Syringe SUB-Q 40 mg DAILY SLOAN Administration Fish Oil 2 gm 09/24/23 21:00 09/24/23 21:22 [place] 3 Polyunsat Fatty Acids 1 Gm Cap PO 10/24/23 20:59 2 gm HS SLOAN Administration Vancomycin HCl 1,500 mg in 500 mls @ 250 mls/hr 09/24/23 14:00 09/24/23 17:28 Vancomycin 1,500 Mg/D5w 500 Ml IVPB Infused Q24H SLOAN Infusion Ipratropium [place] 0.5 mg 09/24/23 02:59 Ipratropium Br 0.02% Inh Soln 0.5 Mg/2.5 Ml Vial INHALATION Q6HRT PRN shortness of breath Mirtazapine 30 mg 09/24/23 21:00 09/24/23 21:23 Mirtazapine 30 Mg Tablet PO 30 mg HS SLOAN Administration Olanzapine 20 mg 09/24/23 09:00 09/25/23 08:17 Olanzapine 5 Mg Tablet PO 20 mg DAILY SLOAN Administration Rosuvastatin Calcium 5 mg 09/24/23 21:00 09/24/23 21:23 Rosuvastatin 5 Mg Tablet PO 5 mg HS SLOAN Administration Trazodone HCl 50 mg 09/24/23 21:00 09/24/23 21:23 Trazodone Hcl 50 Mg Tablet PO 50 mg HS SLOAN Administration Radiology Results: ITS Impressions Tibia/Fibula X
[2023-09-25 14:00] VITALS: BP 108/58; PULSE 62; RESP 19; TEMP 36.4; O2SAT 96
[2023-09-25 22:00] VITALS: BP 137/56; PULSE 75; RESP 20; TEMP 36.4; O2SAT 95
[2023-09-25] MEDS: traZODone HCL 50 MG TABLET PO (22:44)
[2023-09-25] MEDS: HYDROcodone/acetaminophen (*CRX) 5-325 MG TABLET 1 TAB PO (22:44)
[2023-09-25] MEDS: MIRTAZAPINE 30 MG TABLET PO (22:44)
[2023-09-25] MEDS: DONEPEZIL HCL 5 MG TABLET PO (22:44)
[2023-09-25] MEDS: ROSUVASTATIN 5 MG TABLET PO (22:44)
[2023-09-25] MEDS: OMEGA 3 POLYUNSAT FATTY ACIDS 1 GM CAP 2 GM PO (22:45)
[2023-09-26 06:00] VITALS: BP 121/68; PULSE 50; RESP 20; TEMP 35.6; O2SAT 99
[2023-09-26 07:23] LABS: Basophils Percent Auto 0.8 % (0.2-1.2); Eosinophils Absolute Auto 0.2 K/mm3 (0-0.3); Eosinophils Percent Auto 3.3 % (0-4.4); Hematocrit 40.1 % (42.0-52.0); Hemoglobin 12.6 g/dL (14.0-18.0); Immature Granulocyte Absolute 0.09 K/mm3 (0.00-0.031); Immature Granulocyte Percent A 1.8 % (0-0.5); Lymphocytes Absolute Auto 1.42 K/mm3 (0.9-3.2); Lymphocytes Percent Auto 27.8 % (18.3-44.2); Mean Corpuscular HGB Conc 31.4 g/dl (32-36); Mean Corpuscular Hemoglobin 28.4 pg (26-34); Mean Corpuscular Volume 90.5 fl (80-100); Mean Platelet Volume 9.5 fl (7.4-10.4); Monocytes Absolute Auto 0.5 K/mm3 (0.1-0.6); Monocytes Percent Auto 8.8 % (2.6-8.5); Neutrophils Absolute Auto 2.9 K/mm3 (1.3-6.7); Neutrophils Percent Auto 57.5 % (45.5-73.1); Platelet Count Result 182 k/mm3 (150-375); Red Blood Count 4.43 M/mm3 (4.6-6.20); White Blood Count 5.1 K/mm3 (4.5-10.0)
[2023-09-26 07:36] LABS: Anion Gap 6 mmol/L (8-16); Blood Urea Nitrogen 18 mg/dL (9-20); Calcium 8.6 mg/dL (8.4-10.2); Carbon Dioxide 29 mmol/L (22-30); Chloride 104 mmol/L (98-107); Estimated CRCL calculation 60 ml/min; Estimated Glomerular Filt Rate > 60; Glucose 106 mg/dL (65-110); Potassium 3.9 mmol/L (3.4-5.0); Sodium 139 mmol/L (137-145)
[2023-09-26] MEDS: ARIPiprazole 10 MG TABLET 20 MG PO (08:20)
[2023-09-26] MEDS: ATORVASTATIN 10 MG TABLET PO (08:20)
[2023-09-26] MEDS: OLANZapine 5 MG TABLET 20 MG PO (08:20)
[2023-09-26] MEDS: DIVALPROEX SODIUM DR 250 MG TABEC 500 MG PO ×2 (08:21→20:07)
[2023-09-26] MEDS: ENOXAPARIN 40 MG/0.4 ML SYRINGE SUB-Q (08:21)
--- NOTE | 2023-09-26 09:49 | PM.IMPN ---
Progress Note: A&P Assessment and Plan (1) Cellulitis of leg without foot, right: Code(s): L03.115 - Cellulitis of right lower limb Status: Acute (2) Reduced mobility: Code(s): Z74.09 - Other reduced mobility Status: Acute Plan 73M w/ PMH depression, schizophrenia, dementia, HLD, vit d deficiency presents with limited mobility and cellulitis of RLE. cont vancomycin for one more day. could be dc'ed tomorrow if more improved, would liek to see more. blood cultures NGTD PT, plan for return to his usual care home SNF, but this time for acute rehab as well. FEN: regular diet GI prophylaxis: not indicated DVT prophylaxis: lovenox Lines: pIV Code Status: Full code Dispo: stable. Subjective Date/time seen: 09/26/23 09:49 Interval history: NAOE. pt is more alert today, sitting up in bed and conversing. he denies any complaints. Review of Systems Review of Systems: All systems reviewed & are unremarkable except as noted in HPI and below Exam Const: General: comfortable Resp: Effort & Inspection: normal respiratory effort Auscultation: clear to auscultation bilaterally Cardio: Rate: regular rate Rhythm: regular rhythm Skin: General skin exam: erythema (slightly improved within previous markings 2 days prior) Objective Data Vital Signs Vital Signs: Vital Signs - 24 hr 09/25/23 14:00 09/25/23 22:00 09/26/23 06:00 Temperature 97.5 F L 97.5 F L 96.1 F L Pulse Rate 62 75 50 L Respiratory Rate 19 20 20 Blood Pressure 108/58 L 137/56 L 121/68 Pulse Oximetry 96 95 99 Intake/Output Intake/Output: Intake & Output 09/23/23 09/24/23 09/25/23 09/26/23 23:59 23:59 23:59 23:59 Intake Total 500 2450 3387 500 Output Total 750 Balance 500 2450 2637 500 Meds/Results Medications: Active Medications Generic Name Dose Route Start Last Admin Trade Name Freq PRN Reason Stop Dose Admin Acetaminophen 650 mg 09/24/23 01:27 09/24/23 08:09 Acetaminophen 325 Mg Tablet PO 650 mg Q6H PRN Administration pain 1-3 Hydrocodone Bitart/Acetaminophen 1 tab 09/24/23 01:31 09/25/23 22:44 Hydrocodone/Acetaminophen (*Crx) 5-325 Mg Tablet PO 1 tab Q4H PRN Administration Moderate Pain (4-6) Albuterol 2.5 mg 09/24/23 01:27 Albuterol Sulfate Neb 2.5 Mg/3 Ml Inh INHALATION Q6HRT PRN shortness of breath Aripiprazole 20 mg 09/24/23 09:00 09/26/23 08:20 Aripiprazole 10 Mg Tablet PO 10/24/23 08:59 20 mg DAILY SLOAN Administration Atorvastatin Calcium 10 mg 09/24/23 09:00 09/26/23 08:20 Atorvastatin 10 Mg Tablet PO 10 mg DAILY SLOAN Administration Divalproex Sodium 500 mg 09/24/23 09:00 09/26/23 08:[address] 250 Mg Tabec PO 500 mg Q12HR SLOAN Administration Donepezil HCl 5 mg 09/24/23 21:00 09/25/23 22:44 Donepezil Hcl 5 Mg Tablet PO 5 mg HS SLOAN Administration Enoxaparin Sodium 40 mg 09/24/23 09:00 09/26/23 08:21 Enoxaparin 40 Mg/0.4 Ml Syringe SUB-Q 40 mg DAILY SLOAN Administration Fish Oil 2 gm 09/24/23 21:00 09/25/23 22:45 [place] 3 Polyunsat Fatty Acids 1 Gm Cap PO 10/24/23 20:59 2 gm HS SLOAN Administration Vancomycin HCl 1,500 mg in 500 mls @ 250 mls/hr 09/24/23 14:00 09/25/23 16:56 Vancomycin 1,500 Mg/D5w 500 Ml IVPB Infused Q24H SLOAN Infusion Ipratropium [place] 0.5 mg 09/24/23 02:59 Ipratropium Br 0.02% Inh Soln 0.5 Mg/2.5 Ml Vial INHALATION Q6HRT PRN shortness of breath Mirtazapine 30 mg 09/24/23 21:00 09/25/23 22:44 Mirtazapine 30 Mg Tablet PO 30 mg HS SLOAN Administration Olanzapine 20 mg 09/24/23 09:00 09/26/23 08:20 Olanzapine 5 Mg Tablet PO 20 mg DAILY SLOAN Administration Rosuvastatin Calcium 5 mg 09/24/23 21:00 09/25/23 22:44 Rosuvastatin 5 Mg Tablet PO 5 mg HS SLOAN Administration Trazodone HCl 50 mg 09/24/23 21:00 09/25/23 22:44 Trazodone Hcl 50 Mg Tablet PO 50 mg HS SLOAN Administration Radio
[2023-09-26 14:00] VITALS: BP 105/49; PULSE 72; RESP 18; TEMP 36.9; O2SAT 97
[2023-09-26 14:03] LABS: Vancomycin Trough 7.5 ug/mL (10.0-20.0)
[2023-09-26] MEDS: ROSUVASTATIN 5 MG TABLET PO (20:06)
[2023-09-26] MEDS: OMEGA 3 POLYUNSAT FATTY ACIDS 1 GM CAP 2 GM PO (20:06)
[2023-09-26] MEDS: DONEPEZIL HCL 5 MG TABLET PO (20:07)
[2023-09-26] MEDS: traZODone HCL 50 MG TABLET PO (20:07)
[2023-09-26] MEDS: MIRTAZAPINE 30 MG TABLET PO (20:07)
[2023-09-26 22:00] VITALS: BP 134/66; PULSE 70; RESP 16; TEMP 37; O2SAT 96
[2023-09-27 06:00] VITALS: BP 114/57; PULSE 64; RESP 20; TEMP 36.2; O2SAT 96
[2023-09-27 06:36] LABS: Basophils Percent Auto 0.8 % (0.2-1.2); Eosinophils Absolute Auto 0.1 K/mm3 (0-0.3); Eosinophils Percent Auto 2.7 % (0-4.4); Hematocrit 40.5 % (42.0-52.0); Hemoglobin 12.9 g/dL (14.0-18.0); Lymphocytes Absolute Auto 1.33 K/mm3 (0.9-3.2); Lymphocytes Percent Auto 27.3 % (18.3-44.2); Mean Corpuscular HGB Conc 31.9 g/dl (32-36); Mean Platelet Volume 9.3 fl (7.4-10.4); Monocytes Absolute Auto 0.4 K/mm3 (0.1-0.6); Monocytes Percent Auto 8.4 % (2.6-8.5); Neutrophils Absolute Auto 2.9 K/mm3 (1.3-6.7); Neutrophils Percent Auto 58.8 % (45.5-73.1); Platelet Count Result 198 k/mm3 (150-375); Red Blood Count 4.45 M/mm3 (4.6-6.20); White Blood Count 4.9 K/mm3 (4.5-10.0)
[2023-09-27 06:48] LABS: Anion Gap 2 mmol/L (8-16); Blood Urea Nitrogen 17 mg/dL (9-20); Calcium 8.7 mg/dL (8.4-10.2); Carbon Dioxide 31 mmol/L (22-30); Chloride 105 mmol/L (98-107); Estimated CRCL calculation 60 ml/min; Estimated Glomerular Filt Rate > 60; Glucose 106 mg/dL (65-110); Potassium 4.2 mmol/L (3.4-5.0); Sodium 138 mmol/L (137-145)
[2023-09-27 08:00] VITALS: O2SAT 96
[2023-09-27] MEDS: ARIPiprazole 10 MG TABLET 20 MG PO (09:11)
[2023-09-27] MEDS: DIVALPROEX SODIUM DR 250 MG TABEC 500 MG PO ×2 (09:11→20:54)
[2023-09-27] MEDS: ENOXAPARIN 40 MG/0.4 ML SYRINGE SUB-Q (09:11)
[2023-09-27] MEDS: OLANZapine 5 MG TABLET 20 MG PO (09:11)
[2023-09-27] MEDS: ATORVASTATIN 10 MG TABLET PO (09:11)
--- NOTE | 2023-09-27 10:53 | PM.IMPN ---
Progress Note: A&P Assessment and Plan (1) Reduced mobility: Code(s): Z74.09 - Other reduced mobility Status: Acute (2) Cellulitis of leg without foot, right: Code(s): L03.115 - Cellulitis of right lower limb Status: Acute Plan 73M w/ PMH depression, schizophrenia, dementia, HLD, vit d deficiency presents with limited mobility and cellulitis of RLE. 1) RLE cellulitis, non purulent - blood cx on admission NGTD - no evidence of sepsis - borders marked on day #1, erythema is only slightly improved. has been on vancomycin since admission 09/23. on 09/27 adding cefepime to extend coverage. CTM for improvement 2) reduced mobility - usually ambulatory, was not walking on admission, likely 2/2 cellulitis and mental capacity. PT consulted. plan to go back to assisted living facility he came from but as acute rehab patient. case mgmt consutled chronic conditions: continue home meds FEN: regular diet GI prophylaxis: not indicated DVT prophylaxis: lovenox Lines: pIV Code Status: Full code Dispo: stable. Subjective Date/time seen: 09/27/23 10:53 Interval history: NAOE. patient rests comfortably. he follows commands as usual. denies any complaints. Review of Systems Review of Systems: All systems reviewed & are unremarkable except as noted in HPI and below Exam Const: General: comfortable and no acute distress Eyes: Pupils: Equal, round and reactive pupils present Neck: Neck: supple Resp: Effort & Inspection: normal respiratory effort Auscultation: clear to auscultation bilaterally Cardio: Rate: regular rate Rhythm: regular rhythm GI: Inspection: non-distended GI Palp: Yes Soft to palpation and No Tenderness to palpation present (GI) Auscultation: normal bowel sounds Skin: General skin exam: erythema (RLE erythema not improved compared to day prior, see marking) Objective Data Vital Signs Vital Signs: Vital Signs - 24 hr 09/26/23 14:00 09/26/23 20:00 09/26/23 22:00 Temperature 98.4 F 98.6 F Pulse Rate 72 70 Respiratory Rate 18 16 Blood Pressure 105/49 L 134/66 Pulse Oximetry 97 96 Oxygen Delivery Room Air 09/27/23 06:00 09/27/23 08:00 Temperature 97.1 F L Pulse Rate 64 Respiratory Rate 20 Blood Pressure 114/57 L Pulse Oximetry 96 96 Oxygen Delivery Room Air Intake/Output Intake/Output: Intake & Output 09/24/23 09/25/23 09/26/23 09/27/23 23:59 23:59 23:59 23:59 Intake Total 2450 3387 2240 290 Output Total 750 Balance 2450 2637 2240 290 Meds/Results Medications: Active Medications Generic Name Dose Route Start Last Admin Trade Name Freq PRN Reason Stop Dose Admin Acetaminophen 650 mg 09/24/23 01:27 09/24/23 08:09 Acetaminophen 325 Mg Tablet PO 650 mg Q6H PRN Administration pain 1-3 Hydrocodone Bitart/Acetaminophen 1 tab 09/24/23 01:31 09/25/23 22:44 Hydrocodone/Acetaminophen (*Crx) 5-325 Mg Tablet PO 1 tab Q4H PRN Administration Moderate Pain (4-6) Albuterol 2.5 mg 09/24/23 01:27 Albuterol Sulfate Neb 2.5 Mg/3 Ml Inh INHALATION Q6HRT PRN shortness of breath Aripiprazole 20 mg 09/24/23 09:00 09/27/23 09:11 Aripiprazole 10 Mg Tablet PO 10/24/23 08:59 20 mg DAILY SLOAN Administration Atorvastatin Calcium 10 mg 09/24/23 09:00 09/27/23 09:11 Atorvastatin 10 Mg Tablet PO 10 mg DAILY SLOAN Administration Divalproex Sodium 500 mg 09/24/23 09:00 09/27/23 09:[address] 250 Mg Tabec PO 500 mg Q12HR SLOAN Administration Donepezil HCl 5 mg 09/24/23 21:00 09/26/23 20:07 Donepezil Hcl 5 Mg Tablet PO 5 mg HS SLOAN Administration Enoxaparin Sodium 40 mg 09/24/23 09:00 09/27/23 09:11 Enoxaparin 40 Mg/0.4 Ml Syringe SUB-Q 40 mg DAILY SLOAN Administration Fish Oil 2 gm 09/24/23 21:00 09/26/23 20:06 [place] 3 Polyunsat Fatty Acids 1 Gm Cap PO 10/24/23 20:59 2 gm HS SLOAN Administration Vancomycin HCl 1,500 mg in 500 mls @ 250 mls/h
[2023-09-27] MEDS: CEFEPIME 2 GM/NS 50 ML 2 GM/50 ML BAG IVPB ×2 (12:01→18:27)
[2023-09-27 14:00] VITALS: BP 137/70; PULSE 89; RESP 18; TEMP 36.3; O2SAT 94
[2023-09-27] MEDS: HYDROcodone/acetaminophen (*CRX) 5-325 MG TABLET 1 TAB PO (16:00)
[2023-09-27] MEDS: DONEPEZIL HCL 5 MG TABLET PO (20:54)
[2023-09-27] MEDS: traZODone HCL 50 MG TABLET PO (20:54)
[2023-09-27] MEDS: MIRTAZAPINE 30 MG TABLET PO (20:54)
[2023-09-27] MEDS: ROSUVASTATIN 5 MG TABLET PO (20:54)
[2023-09-27] MEDS: OMEGA 3 POLYUNSAT FATTY ACIDS 1 GM CAP 2 GM PO (20:55)
[2023-09-27 21:40] VITALS: BP 109/61; PULSE 72; RESP 13; TEMP 36.7; O2SAT 97
[2023-09-28] MEDS: CEFEPIME 2 GM/NS 50 ML 2 GM/50 ML BAG IVPB ×3 (02:35→18:02)
[2023-09-28 05:34] VITALS: BP 132/77; PULSE 65; RESP 13; TEMP 36.4; O2SAT 95
[2023-09-28] MEDS: OLANZapine 5 MG TABLET 20 MG PO (08:05)
[2023-09-28] MEDS: ENOXAPARIN 40 MG/0.4 ML SYRINGE SUB-Q (08:05)
[2023-09-28] MEDS: ARIPiprazole 10 MG TABLET 20 MG PO (08:06)
[2023-09-28] MEDS: DIVALPROEX SODIUM DR 250 MG TABEC 500 MG PO ×2 (08:06→21:18)
[2023-09-28] MEDS: ATORVASTATIN 10 MG TABLET PO (08:06)
[2023-09-28 08:56] LABS: Anion Gap 3 mmol/L (8-16); Blood Urea Nitrogen 16 mg/dL (9-20); Calcium 8.9 mg/dL (8.4-10.2); Carbon Dioxide 29 mmol/L (22-30); Chloride 105 mmol/L (98-107); Estimated CRCL calculation 60 ml/min; Estimated Glomerular Filt Rate > 60; Glucose 115 mg/dL (65-110); Sodium 137 mmol/L (137-145)
[2023-09-28 09:15] LABS: Basophils Percent Auto 0.8 % (0.2-1.2); Eosinophils Absolute Auto 0.1 K/mm3 (0-0.3); Eosinophils Percent Auto 2.8 % (0-4.4); Hematocrit 40.8 % (42.0-52.0); Hemoglobin 13.1 g/dL (14.0-18.0); Lymphocytes Absolute Auto 1.19 K/mm3 (0.9-3.2); Lymphocytes Percent Auto 23.8 % (18.3-44.2); Mean Corpuscular HGB Conc 32.1 g/dl (32-36); Mean Corpuscular Volume 90.5 fl (80-100); Mean Platelet Volume 9.5 fl (7.4-10.4); Monocytes Absolute Auto 0.4 K/mm3 (0.1-0.6); Monocytes Percent Auto 8.8 % (2.6-8.5); Neutrophils Absolute Auto 3.1 K/mm3 (1.3-6.7); Neutrophils Percent Auto 61.8 % (45.5-73.1); Platelet Count Result 204 k/mm3 (150-375); Red Blood Count 4.51 M/mm3 (4.6-6.20); Red Cell Distribution Width 13.9 % (11.5-14.5)
[2023-09-28 09:29] LABS: Procalcitonin 0.1 ng/mL
--- NOTE | 2023-09-28 13:52 | PM.IMPN ---
Progress Note: A&P Assessment and Plan (1) Reduced mobility: Code(s): Z74.09 - Other reduced mobility Status: Acute Assessment and Plan: SEE BELOW (2) Cellulitis of leg without foot, right: Code(s): L03.115 - Cellulitis of right lower limb Status: Acute Plan 1) RLE cellulitis, non purulent - blood cx on admission negative - continue iv cefepime and iv vancomycin 2) reduced mobility - usually ambulatory, was not walking on admission, likely 2/2 cellulitis and mental capacity. PT consulted. plan to go back to assisted living facility he came from but as acute rehab patient. chronic conditions: schizophrenia continue medications Subjective Date/time seen: 09/28/23 13:52 Interval history: 73-year-old male presents here with reduced mobility, increased altered mental status, erythema to RLE with past medical history of TBI, schizophrenia, cellulitis to the right lower extremity. Pt is resting in bed right leg still red hot and swollen Review of Systems Review of Systems: Right leg still red hot and swollen Exam Const: General: comfortable and no acute distress Other: Mildly somnolent Eyes: General: appearance normal, both eyes and all related structures Sclera: sclerae normal Pupils: Equal, round and reactive pupils present EOM: EOMs intact bilaterally Resp: Effort & Inspection: normal respiratory effort Auscultation: clear to auscultation bilaterally and no crackles Cardio: Rate: regular rate Rhythm: regular rhythm Other: S1-S2 present without murmur, rub, ectopy GI: Inspection: non-distended Auscultation: normal bowel sounds Skin: General skin exam: normal color, erythema (RLE erythema not improved compared to day prior, see marking) and rashes Rashes: rashes noted Other: Erythema, swelling, and redness to majority of calf, right. Area is well demarcated with scaling. No active drainage. Neuro: Cranial nerves: Yes Equal, round and reactive pupils present Other: A/Ox1, moving all extremites. Extrem: General: edema (erythema as well, improved slightly) Other: See skin exam, swelling to right lower extremity. DP pules L<R, right DP requiring Doppler. Psych: Other: Poor insight and judgment due to cognition, flat affect, somnolent. Objective Data Vital Signs Vital Signs: Vital Signs - 24 hr 09/27/23 14:00 09/27/23 21:40 09/28/23 05:34 Temperature 36.3 C L 36.7 C 36.4 C Pulse Rate 89 72 65 Respiratory Rate 18 13 13 Blood Pressure 137/70 109/61 132/77 Pulse Oximetry 94 97 95 Oxygen Delivery 09/28/23 08:10 Temperature Pulse Rate Respiratory Rate Blood Pressure Pulse Oximetry Oxygen Delivery Room Air Intake/Output Intake/Output: Intake & Output 09/25/23 09/26/23 09/27/23 09/28/23 23:59 23:59 23:59 23:59 Intake Total 3387 2240 1470 2070 Output Total 750 50 Balance 2637 2240 1420 2070 Meds/Results Medications: Active Medications Generic Name Dose Route Start Last Admin Trade Name Freq PRN Reason Stop Dose Admin Acetaminophen 650 mg 09/24/23 01:27 09/24/23 08:09 Acetaminophen 325 Mg Tablet PO 650 mg Q6H PRN Administration pain 1-3 Hydrocodone Bitart/Acetaminophen 1 tab 09/24/23 01:31 09/27/23 16:00 Hydrocodone/Acetaminophen (*Crx) 5-325 Mg Tablet PO 1 tab Q4H PRN Administration Moderate Pain (4-6) Albuterol 2.5 mg 09/24/23 01:27 Albuterol Sulfate Neb 2.5 Mg/3 Ml Inh INHALATION Q6HRT PRN shortness of breath Aripiprazole 20 mg 09/24/23 09:00 09/28/23 08:06 Aripiprazole 10 Mg Tablet PO 10/24/23 08:59 20 mg DAILY SLOAN Administration Atorvastatin Calcium 10 mg 09/24/23 09:00 09/28/23 08:06 Atorvastatin 10 Mg Tablet PO 10 mg DAILY SLOAN Administration Divalproex Sodium 500 mg 09/24/23 09:00 09/28/23 08:[address] 250 Mg Tabec PO 500 mg Q12HR SLOAN Administration Donepezil HCl 5 mg
[2023-09-28 14:10] VITALS: BP 106/57; PULSE 72; RESP 16; TEMP 36.4; O2SAT 98
[2023-09-28] MEDS: OMEGA 3 POLYUNSAT FATTY ACIDS 1 GM CAP 2 GM PO (21:18)
[2023-09-28] MEDS: DONEPEZIL HCL 5 MG TABLET PO (21:18)
[2023-09-28] MEDS: MIRTAZAPINE 30 MG TABLET PO (21:22)
[2023-09-28] MEDS: ROSUVASTATIN 5 MG TABLET PO (21:22)
[2023-09-28] MEDS: traZODone HCL 50 MG TABLET PO (21:22)
[2023-09-28 21:34] VITALS: BP 128/73; PULSE 83; RESP 13; TEMP 37
[2023-09-29] MEDS: CEFEPIME 2 GM/NS 50 ML 2 GM/50 ML BAG IVPB ×2 (03:10→11:42)
[2023-09-29 05:40] VITALS: BP 112/59; PULSE 100; RESP 12; TEMP 36.4; O2SAT 99
[2023-09-29] MEDS: ATORVASTATIN 10 MG TABLET PO (08:17)
[2023-09-29] MEDS: OLANZapine 5 MG TABLET 20 MG PO (08:17)
[2023-09-29] MEDS: ENOXAPARIN 40 MG/0.4 ML SYRINGE SUB-Q (08:17)
[2023-09-29] MEDS: ARIPiprazole 10 MG TABLET 20 MG PO (08:17)
[2023-09-29] MEDS: DIVALPROEX SODIUM DR 250 MG TABEC 500 MG PO ×2 (08:17→20:32)
[2023-09-29 14:00] VITALS: BP 107/70; PULSE 65; RESP 16; TEMP 36.8; O2SAT 97
--- NOTE | 2023-09-29 14:32 | PCPTNOTE ---
Attempted to see patient for Physical Therapy this date. Patient stated that he was too tired to walk or do leg exercises. Patient stated that he wanted to go to sleep. RN notified.
--- NOTE | 2023-09-29 14:33 | PM.IMPN ---
Progress Note: A&P Assessment and Plan (1) Reduced mobility: Code(s): Z74.09 - Other reduced mobility Status: Acute Assessment and Plan: SEE BELOW (2) Cellulitis of leg without foot, right: Code(s): L03.115 - Cellulitis of right lower limb Status: Acute Plan 1) RLE cellulitis, non purulent - blood cx on admission negative - transition iv cefepime and iv vancomycin to augmentin orally 2) reduced mobility - usually ambulatory, was not walking on admission, likely 2/2 cellulitis and mental capacity. PT consulted. plan to go back to assisted living facility he came from but as acute rehab patient. chronic conditions: schizophrenia continue medications Subjective Date/time seen: 09/29/23 14:33 Interval history: 73-year-old male presents here with reduced mobility, increased altered mental status, erythema to RLE with past medical history of TBI, schizophrenia, cellulitis to the right lower extremity. Pt is resting in bed right leg still red hot and swollen Continue to treat or another 1-2 days time Dc to rehab on wednesday Review of Systems Review of Systems: Right leg still red hot and swollen, no complaints, sleeping most of the day All systems reviewed & are unremarkable except as noted in HPI and below Exam Const: General: comfortable and no acute distress Other: Mildly somnolent Neck: Neck: supple Resp: Effort & Inspection: normal respiratory effort Auscultation: clear to auscultation bilaterally and no crackles Cardio: Rate: regular rate Rhythm: regular rhythm Other: S1-S2 present without murmur, rub, ectopy GI: Inspection: non-distended Auscultation: normal bowel sounds Skin: General skin exam: normal color, erythema (RLE erythema not improved compared to day prior, see marking) and rashes Rashes: rashes noted Other: Erythema, swelling, and redness to majority of calf, right. Area is well demarcated with scaling. No active drainage. Neuro: Cranial nerves: Yes Equal, round and reactive pupils present Other: A/Ox1, moving all extremites. Extrem: General: edema (erythema as well, improved slightly) Other: See skin exam, swelling to right lower extremity. DP pules L<R, right DP requiring Doppler. Psych: Other: Poor insight and judgment due to cognition, flat affect, somnolent. Objective Data Vital Signs Vital Signs: Vital Signs - 24 hr 09/28/23 21:34 09/29/23 05:40 Temperature 37.0 C 36.4 C L Pulse Rate 83 100 Respiratory Rate 13 12 Blood Pressure 128/73 112/59 L Pulse Oximetry 99 Intake/Output Intake/Output: Intake & Output 09/26/23 09/27/23 09/28/23 09/29/23 23:59 23:59 23:59 23:59 Intake Total 2240 1470 3060 668 Output Total 50 400 400 Balance 2240 1420 2660 268 Meds/Results Medications: Active Medications Generic Name Dose Route Start Last Admin Trade Name Freq PRN Reason Stop Dose Admin Acetaminophen 650 mg 09/24/23 01:27 09/24/23 08:09 Acetaminophen 325 Mg Tablet PO 650 mg Q6H PRN Administration pain 1-3 Hydrocodone Bitart/Acetaminophen 1 tab 09/24/23 01:31 09/27/23 16:00 Hydrocodone/Acetaminophen (*Crx) 5-325 Mg Tablet PO 1 tab Q4H PRN Administration Moderate Pain (4-6) Albuterol 2.5 mg 09/24/23 01:27 Albuterol Sulfate Neb 2.5 Mg/3 Ml Inh INHALATION Q6HRT PRN shortness of breath Amoxicillin/Clavulanate Potassium 1 tablet 09/29/23 21:00 Amoxicillin/Clavulanate K 875-125 Mg Tab PO 10/04/23 09:01 Q12HR SLOAN Aripiprazole 20 mg 09/24/23 09:00 09/29/23 08:17 Aripiprazole 10 Mg Tablet PO 10/24/23 08:59 20 mg DAILY SLOAN Administration Atorvastatin Calcium 10 mg 09/24/23 09:00 09/29/23 08:17 Atorvastatin 10 Mg Tablet PO 10 mg DAILY SLOAN Administration Divalproex Sodium 500 mg 09/24/23 09:00 09/29/23 08:[address] 250 Mg Tabec PO 500 mg Q12HR SLOAN Administration Donepezil H
[2023-09-29 19:50] VITALS: O2SAT 97
[2023-09-29] MEDS: DONEPEZIL HCL 5 MG TABLET PO (20:32)
[2023-09-29] MEDS: MIRTAZAPINE 30 MG TABLET PO (20:32)
[2023-09-29] MEDS: ROSUVASTATIN 5 MG TABLET PO (20:32)
[2023-09-29] MEDS: OMEGA 3 POLYUNSAT FATTY ACIDS 1 GM CAP 2 GM PO (20:32)
[2023-09-29] MEDS: traZODone HCL 50 MG TABLET PO (20:32)
[2023-09-29] MEDS: AMOXICILLIN/CLAVULANATE K 875-125 MG TAB 1 TABLET PO (20:32)
[2023-09-29 20:35] VITALS: BP 148/72; PULSE 68; RESP 16; TEMP 36.6; O2SAT 94
[2023-09-30 04:52] VITALS: BP 134/68; PULSE 58; RESP 16; TEMP 36.6; O2SAT 98
[2023-09-30 06:57] LABS: Hematocrit 39.8 % (42.0-52.0); Hemoglobin 12.8 g/dL (14.0-18.0); Mean Corpuscular HGB Conc 32.2 g/dl (32-36); Mean Platelet Volume 9.2 fl (7.4-10.4); Platelet Count Result 202 k/mm3 (150-375); Red Blood Count 4.42 M/mm3 (4.6-6.20); Red Cell Distribution Width 13.9 % (11.5-14.5); White Blood Count 4.6 K/mm3 (4.5-10.0)
[2023-09-30 07:00] LABS: Anion Gap 3 mmol/L (8-16); Blood Urea Nitrogen 16 mg/dL (9-20); Calcium 8.7 mg/dL (8.4-10.2); Carbon Dioxide 31 mmol/L (22-30); Chloride 104 mmol/L (98-107); Estimated CRCL calculation 60 ml/min; Estimated Glomerular Filt Rate > 60; Glucose 102 mg/dL (65-110); Sodium 138 mmol/L (137-145)
[2023-09-30 08:00] VITALS: O2SAT 98
[2023-09-30] MEDS: DIVALPROEX SODIUM DR 250 MG TABEC 500 MG PO ×2 (08:13→21:47)
[2023-09-30] MEDS: ENOXAPARIN 40 MG/0.4 ML SYRINGE SUB-Q (08:13)
[2023-09-30] MEDS: ARIPiprazole 10 MG TABLET 20 MG PO (08:13)
[2023-09-30] MEDS: OLANZapine 5 MG TABLET 20 MG PO (08:13)
[2023-09-30] MEDS: ATORVASTATIN 10 MG TABLET PO (08:13)
[2023-09-30] MEDS: AMOXICILLIN/CLAVULANATE K 875-125 MG TAB 1 TABLET PO ×2 (08:13→21:46)
--- NOTE | 2023-09-30 09:38 | PCNWS ---
Weekly nutritional screen. Patient is tolerating current diet with adequate intake. No weight loss reported. No nutritional needs at this time.
[2023-09-30 13:59] VITALS: BP 104/55; PULSE 74; RESP 18; TEMP 37.1; O2SAT 100
--- NOTE | 2023-09-30 15:30 | PM.IMPN ---
Progress Note: A&P Assessment and Plan (1) Reduced mobility: Code(s): Z74.09 - Other reduced mobility Status: Acute Assessment and Plan: SEE BELOW (2) Cellulitis of leg without foot, right: Code(s): L03.115 - Cellulitis of right lower limb Status: Acute Plan 1) RLE cellulitis, non purulent - blood cx on admission negative - transition iv cefepime and iv vancomycin to augmentin orally 2) reduced mobility - usually ambulatory, was not walking on admission, likely 2/2 cellulitis and mental capacity. PT consulted. plan to go back to assisted living facility he came from but as acute rehab patient. chronic conditions: schizophrenia continue medications Subjective Date/time seen: 09/30/23 15:30 Interval history: 73-year-old male presents here with reduced mobility, increased altered mental status, erythema to RLE with past medical history of TBI, schizophrenia, cellulitis to the right lower extremity. Pt is resting in bed right leg still red hot and swollen Continue to treat or another 1-2 days time Dc to rehab on wednesday Leg is much better pt walking the halls today Review of Systems Review of Systems: Some blurred vision All systems reviewed & are unremarkable except as noted in HPI and below Exam Const: General: comfortable and no acute distress Other: Mildly somnolent Eyes: General: appearance normal, both eyes and all related structures Sclera: sclerae normal Pupils: Equal, round and reactive pupils present EOM: EOMs intact bilaterally Neck: Neck: supple Resp: Effort & Inspection: normal respiratory effort Auscultation: clear to auscultation bilaterally and no crackles Cardio: Rate: regular rate Rhythm: regular rhythm Other: S1-S2 present without murmur, rub, ectopy GI: Inspection: non-distended Auscultation: normal bowel sounds Skin: General skin exam: normal color, erythema (RLE erythema not improved compared to day prior, see marking) and rashes Rashes: rashes noted Other: Erythema, swelling, and redness to majority of calf, right. Area is well demarcated with scaling. No active drainage. Neuro: Cranial nerves: Yes Equal, round and reactive pupils present Other: A/Ox1, moving all extremites. Extrem: General: edema (erythema as well, improved slightly) Other: See skin exam, swelling to right lower extremity. DP pules L<R, right DP requiring Doppler. Psych: Other: Poor insight and judgment due to cognition, flat affect, somnolent. Objective Data Vital Signs Vital Signs: Vital Signs - 24 hr 09/29/23 19:50 09/29/23 20:35 09/30/23 04:52 Temperature 36.6 C 36.6 C Pulse Rate 68 58 L Respiratory Rate 16 16 Blood Pressure 148/72 H 134/68 Pulse Oximetry 97 94 98 Oxygen Delivery Room Air 09/30/23 08:00 09/30/23 13:59 Temperature 37.1 C Pulse Rate 74 Respiratory Rate 18 Blood Pressure 104/55 L Pulse Oximetry 98 100 Oxygen Delivery Room Air Intake/Output Intake/Output: Intake & Output 09/27/23 09/28/23 09/29/23 09/30/23 23:59 23:59 23:59 23:59 Intake Total 1470 3060 904 952 Output Total 50 400 700 175 Balance 1420 2660 204 777 Meds/Results Medications: Active Medications Generic Name Dose Route Start Last Admin Trade Name Freq PRN Reason Stop Dose Admin Acetaminophen 650 mg 09/24/23 01:27 09/24/23 08:09 Acetaminophen 325 Mg Tablet PO 650 mg Q6H PRN Administration pain 1-3 Hydrocodone Bitart/Acetaminophen 1 tab 09/24/23 01:31 09/27/23 16:00 Hydrocodone/Acetaminophen (*Crx) 5-325 Mg Tablet PO 1 tab Q4H PRN Administration Moderate Pain (4-6) Albuterol 2.5 mg 09/24/23 01:27 Albuterol Sulfate Neb 2.5 Mg/3 Ml Inh INHALATION Q6HRT PRN shortness of breath Amoxicillin/Clavulanate Potassium 1 tablet 09/29/23 21:00 09/30/23 08:13 Amoxicillin/Clavulanate K 875-125 Mg Tab PO 10/04/23 09:01 1 tablet Q12HR SLOAN Admini
[2023-09-30 20:58] VITALS: BP 127/65; PULSE 79; RESP 16; TEMP 36.6; O2SAT 97
[2023-09-30] MEDS: OMEGA 3 POLYUNSAT FATTY ACIDS 1 GM CAP 2 GM PO (21:47)
[2023-09-30] MEDS: traZODone HCL 50 MG TABLET PO (21:47)
[2023-09-30] MEDS: ROSUVASTATIN 5 MG TABLET PO (21:47)
[2023-09-30] MEDS: MIRTAZAPINE 30 MG TABLET PO (21:47)
[2023-09-30] MEDS: DONEPEZIL HCL 5 MG TABLET PO (21:47)
[2023-10-01 04:57] VITALS: BP 119/64; PULSE 68; RESP 16; TEMP 36.1; O2SAT 100
[2023-10-01 08:00] VITALS: O2SAT 100
[2023-10-01] MEDS: ARIPiprazole 10 MG TABLET 20 MG PO (08:46)
[2023-10-01] MEDS: AMOXICILLIN/CLAVULANATE K 875-125 MG TAB 1 TABLET PO (08:46)
[2023-10-01] MEDS: ENOXAPARIN 40 MG/0.4 ML SYRINGE SUB-Q (08:47)
[2023-10-01] MEDS: DIVALPROEX SODIUM DR 250 MG TABEC 500 MG PO (08:47)
[2023-10-01] MEDS: ATORVASTATIN 10 MG TABLET PO (08:47)
[2023-10-01] MEDS: OLANZapine 5 MG TABLET 20 MG PO (08:47)
--- NOTE | 2023-10-01 09:33 | PM.DS ---
DS: Admitting Diagnosis Discharge Date 10/01/2023 Admitting Diagnosis Reduced mobility, AMS, redness to RLE DS: Discharge Diagnosis Discharge Diagnosis (1) Reduced mobility: Code(s): Z74.09 - Other reduced mobility Status: Acute Assessment and Plan: SEE BELOW (2) Cellulitis of leg without foot, right: Code(s): L03.115 - Cellulitis of right lower limb Status: Acute Plan 1) RLE cellulitis, non purulent - blood cx on admission negative - transition iv cefepime and iv vancomycin to augmentin orally ok to dc 2) reduced mobility - usually ambulatory, was not walking on admission, likely 2/2 cellulitis and mental capacity. PT consulted. plan to go back to assisted living facility he came from but as acute rehab patient. chronic conditions: schizophrenia continue medications 3) pt complains of blurred vision Order CT head prior to DC pt will need to follow with eye MD for vision check DS: Summary Hospital Course Hospital Course: 73-year-old male presents here with reduced mobility, increased altered mental status, erythema to RLE with past medical history of TBI, schizophrenia, cellulitis to the right lower extremity. Pt is resting in bed right leg still red hot and swollen Continue to treat or another 1-2 days time Dc to SNF today Leg is much better pt walking the halls today Pt complains of blurred vision on day of DC Order CT head prior to DC pt will need to follow with eye MD for vision check Time Spent with Patient Time attestation: Total time spent providing and/or coordinating discharge services:40 minutes on day of DC Exam Const: General: comfortable and no acute distress Other: Mildly somnolent HENMT: Mouth: Yes dry mucous membranes Eyes: General: appearance normal, both eyes and all related structures Sclera: sclerae normal Pupils: Equal, round and reactive pupils present EOM: EOMs intact bilaterally Neck: Neck: supple Resp: Effort & Inspection: normal respiratory effort Auscultation: clear to auscultation bilaterally and no crackles Cardio: Rate: regular rate Rhythm: regular rhythm Other: S1-S2 present without murmur, rub, ectopy GI: Inspection: non-distended Auscultation: normal bowel sounds Skin: General skin exam: normal color, erythema (RLE erythema not improved compared to day prior, see marking) and rashes Rashes: rashes noted Other: Minimal erythema, swelling, and redness to majority of calf, right. Neuro: Cranial nerves: Yes Equal, round and reactive pupils present Other: A/Ox1, moving all extremites. Extrem: General: edema (erythema as well, improved slightly) Psych: Other: Poor insight and judgment due to cognition, flat affect, somnolent. Discharge Plan Discharge Attending physician on discharge: Sujata Randhawa Discharging Clinician: Sujata Randhawa Anticipated Discharge Date/Time: 10/01/23 09:32 Patient Disposition: SNF Activity: as tolerated Diet: regular Stand Alone Forms: General Discharge Information Follow-up/Referrals: Charisma,MD Bharat [Primary Care Provider] - Discharge Medications: New amoxicillin-pot clavulanate [Augmentin] 500-125 mg tablet 1 tablet PO Q12H Qty: 10 0RF Continued donepezil 5 mg tablet 5 mg PO HS trazodone 50 mg tablet 50 mg PO DAILY divalproex 500 mg tablet,delayed release (DR/EC) 500 mg PO BID mirtazapine 30 mg tablet 30 mg PO HS olanzapine 20 mg tablet 20 mg PO DAILY aripiprazole 20 mg tablet 20 mg PO DAILY Fish Oil 1,000 mg Capsule 2 cap PO HS rosuvastatin 5 mg tablet 5 mg PO HS Abilify Maintena 300 mg suspension,extended rel recon 300 mg IM MONTHLY Rx Instructions: once a day on the 12th of the month ipratropium-albuterol 0.5 mg-3 mg(2.5 mg base)/3 mL solution for nebulization 3 ml inhalation Q6H PRN (Reason: shortness of breath) Qty: 180 0
[2023-10-01 13:49] VITALS: BP 102/62; PULSE 108; RESP 18; TEMP 36.4; O2SAT 95
[2023-10-01 15:07] LABS: Influenza A QL RT-PCR Negative (Negative); Influenza B QL RT-PCR Negative (Negative); RSV RNA, RT-PCR Negative (Negative); SARS-CoV-2 RNA PCR Negative (Negative)
== END 2023-10-01 19:05 | DRG 603 ==
LOC: ANHED 14:16 → ANH3MEDSUR 17:50
PROVIDERS: General Practice; Student in an Organized Health Care Education/Training Program; Admitting Provider Internal Medicine; Emergency Provider Emergency Medicine; PCP Internal Medicine; Visit Provider Family Medicine
DX: L03.115 Cellulitis of right lower limb (principal); F20.9 Schizophrenia, unspecified; F03.90 Unspecified dementia, unspecified severity, without behavioral disturbance, psychotic disturbance, mood disturbance, and anxiety; E78.5 Hyperlipidemia, unspecified; F32.9 Major depressive disorder, single episode, unspecified; E55.9 Vitamin D deficiency, unspecified; Z87.820 Personal history of traumatic brain injury; Z11.52 Encounter for screening for COVID-19
CPT/HCPCS: 36415; 70450; 73590; 80048; 80202; 83605; 84145; 85025; 85027; 87040; 87637; 93971; 96365; 96366; 97110; 97116; 97161; 97165; 97530; 97535; 99285; A9270; J0692; J1650; J3370; J7120